=== PATIENT | female | born 1960 | race Hispanic/Latino ===

== ENCOUNTER 2022-12-26 09:26 | Inpatient (IN) | payer BC, OTHER ==
[~2022-12-26] VITALS: Ht 160 cm; Wt 45.4 kg
[2022-12-26] VITALS (13 sets, daily range): BP systolic 94–173; BP diastolic 67–113
[2022-12-26] MEDS ORDERED: METHYLPREDNISOLONE SOD SUCC 125 MG/2ML VIAL IV ONE (09:45)
[2022-12-26] MEDS ORDERED: ALBUTEROL/IPRATROPIUM 3 ML NEB NEB ONE (09:45)
[2022-12-26] MEDS ORDERED: SODIUM CHLORIDE FLUSH 10 ML SYR IV PRN (09:45)
[2022-12-26 09:50] LABS: BASOPHILS # (AUTO) 0.1 (0.0-0.1); BASOPHILS % 0.4 % (0.0-1.0); EOSINOPHILS # (AUTO) 0.1 (0.0-0.4); EOSINOPHILS % 0.6 % (0.0-6.0); HEMOGLOBIN 13.7 g/dL (12.0-16.0); LYMPHOCYTES # (AUTO) 0.9 (1.0-3.2); LYMPHOCYTES % 6.1 % (18.0-39.1); MEAN CORPUSCULAR HEMOGLOBIN 35.6 pg (28-32); MEAN CORPUSCULAR HGB CONC 32.6 g/dL (31-35); MEAN CORPUSCULAR VOLUME 109.1 fL (81-99); MONOCYTES % 7.2 % (4.4-11.3); NEUTROPHILS # (AUTO) 11.9 (2.1-6.9); NEUTROPHILS % 85.3 % (38.7-80.0); PLATELET COUNT 338 x10e3/uL (140-360); RED BLOOD COUNT 3.85 x10e6/uL (3.6-5.1)
[2022-12-26 10:22] LABS: ALBUMIN 3.7 g/dL (3.5-5.0); ALBUMIN/GLOBULIN RATIO 0.9 (0.8-2.0); ANION GAP 12.9 mmol/L (8-16); CALCIUM 9.2 mg/dL (8.4-10.2); CREATININE, SERUM 0.69 mg/dL (0.57-1.11); POTASSIUM 3.9 mmol/L (3.5-5.1)
[2022-12-26] MEDS ORDERED: Morphine 2mg Syringe 2 MG/ML SYR IV ONE (11:15)
[2022-12-26] MEDS ORDERED: SODIUM CHLORIDE 0.9% 1000ML 1,000 ML IV ONE (11:15)
[2022-12-26] MEDS ORDERED: Morphine 2mg Syringe 2 MG/ML SYR IV PRN (11:15)
[2022-12-26] MEDS ORDERED: ONDANSETRON HCL INJ 2MG/ML 2ML 2 MG/ML VIAL IV PRN (11:15)
[2022-12-26] MEDS ORDERED: LEVOFLOXACIN 750MG/D5W 150ML 150 ML IV ONE (11:30)
[2022-12-26] MEDS ORDERED: ZOLPIDEM TARTRATE 5 MG TAB PO PRN (12:00)
[2022-12-26] MEDS ORDERED: ALBUTEROL SULFATE HFA 8GM INHALATION AEROSOL INH PRN (12:00)
[2022-12-26] MEDS ORDERED: AMLODIPINE BESYL5 MG PO (13:11)
[2022-12-26] MEDS ORDERED: IRBESARTAN150 MG PO (13:17)
[2022-12-26] MEDS ORDERED: ALBUTEROL0.63 MG/3 NEB (13:17)
[2022-12-26] MEDS ORDERED: ALENDRONATE SOD70 MG PO (13:17)
[2022-12-26] MEDS ORDERED: HYDROCHLOROTHIA25 MG PO (13:19)
[2022-12-26] MEDS ORDERED: ALBUTEROL SULFAT2 MG PO (13:21)
[2022-12-26] MEDS ORDERED: HYDROCODON-ACE1 EAC9 PO (14:11)
[2022-12-26] MEDS: SODIUM CHLORIDE 0.9% 1000ML 1,000 ML IV SCH (14:44)
[2022-12-26] MEDS: SALMETEROL/FLUTICASONE 250/50 INH SCH (19:20)
[2022-12-26] MEDS ORDERED: HYDROMORPHONE 1MG/1ML INJ IV PRN (19:45)
[2022-12-26] MEDS: NICOTINE 21 MG/EA PATCH TOP SCH (21:12)
[2022-12-26] MEDS: HYDROMORPHONE 1MG/1ML INJ IV PRN (23:14)
[2022-12-27] VITALS (20 sets, daily range): BP systolic 113–158; BP diastolic 71–119
[2022-12-27] MEDS: HYDROMORPHONE 1MG/1ML INJ IV PRN ×5 (03:16→20:37)
[2022-12-27] MEDS: SODIUM CHLORIDE 0.9% 1000ML 1,000 ML IV SCH (06:07)
[2022-12-27 06:55] LABS: BASOPHILS % 0.2 % (0.0-1.0); EOSINOPHILS # (AUTO) 0.1 (0.0-0.4); EOSINOPHILS % 0.7 % (0.0-6.0); HEMATOCRIT 37.4 % (34.2-44.1); HEMOGLOBIN 11.9 g/dL (12.0-16.0); LYMPHOCYTES # (AUTO) 1.2 (1.0-3.2); LYMPHOCYTES % 7.7 % (18.0-39.1); MEAN CORPUSCULAR HEMOGLOBIN 35.3 pg (28-32); MEAN CORPUSCULAR HGB CONC 31.8 g/dL (31-35); MONOCYTES # (AUTO) 1.3 (0.2-0.8); MONOCYTES % 8.2 % (4.4-11.3); NEUTROPHILS # (AUTO) 13.3 (2.1-6.9); NEUTROPHILS % 82.8 % (38.7-80.0); PLATELET COUNT 310 x10e3/uL (140-360); RED BLOOD COUNT 3.37 x10e6/uL (3.6-5.1); RED CELL DISTRIBUTION WIDTH 15.1 % (11.7-14.4)
[2022-12-27] MEDS: SALMETEROL/FLUTICASONE 250/50 INH SCH ×2 (07:11→19:00)
[2022-12-27 07:18] LABS: ALBUMIN 2.8 g/dL (3.5-5.0); ALBUMIN/GLOBULIN RATIO 0.9 (0.8-2.0); ANION GAP 10.2 mmol/L (8-16); CALCIUM 8.7 mg/dL (8.4-10.2); CREATININE, SERUM 0.64 mg/dL (0.57-1.11); POTASSIUM 4.2 mmol/L (3.5-5.1)
[2022-12-27] MEDS: AMLODIPINE BESYLATE 5 MG TAB PO SCH (07:29)
[2022-12-27] MEDS: METOPROLOL TARTRATE 25 MG TAB PO SCH ×2 (09:38→17:51)
[2022-12-27] MEDS: Doxycycline IV 100 MG in SODIUM CHLORIDE 0.9% 100 ML IV SCH ×2 (09:38→20:37)
[2022-12-27] MEDS ORDERED: IOPAMIDOL 370 MG/ML 100 ML INFUS..BTL INJ ONE (15:18)
[2022-12-27] MEDS ORDERED: SODIUM CHLORIDE 0.9% 250ML 250 ML ONE (21:22)
[2022-12-27 22:09] LABS: % IRON SATURATION 9 % (15-50); IRON 22 ug/dL (50-170); TOTAL IRON BINDING CAPACITY 237 ug/dL (261-478); TRANSFERRIN 169 mg/dL (180-382)
[2022-12-27] MEDS ORDERED: KETOROLAC TROMETHAMINE 30 MG/ML VIAL IV STA (22:37)
[2022-12-28] VITALS (7 sets, daily range): BP systolic 125–155; BP diastolic 77–129
[2022-12-28] MEDS: HYDROMORPHONE 1MG/1ML INJ IV PRN ×5 (00:55→22:50)
[2022-12-28] MEDS: SALMETEROL/FLUTICASONE 250/50 INH SCH ×2 (06:47→19:10)
[2022-12-28 08:42] LABS: BASOPHILS # (AUTO) 0.1 (0.0-0.1); BASOPHILS % 0.5 % (0.0-1.0); EOSINOPHILS # (AUTO) 0.3 (0.0-0.4); EOSINOPHILS % 2.5 % (0.0-6.0); HEMATOCRIT 35.8 % (34.2-44.1); LYMPHOCYTES # (AUTO) 1.3 (1.0-3.2); LYMPHOCYTES % 12.3 % (18.0-39.1); MEAN CORPUSCULAR HEMOGLOBIN 35.8 pg (28-32); MEAN CORPUSCULAR HGB CONC 33.5 g/dL (31-35); MONOCYTES % 9.6 % (4.4-11.3); NEUTROPHILS # (AUTO) 7.7 (2.1-6.9); NEUTROPHILS % 74.8 % (38.7-80.0); PLATELET COUNT 208 x10e3/uL (140-360); RED BLOOD COUNT 3.35 x10e6/uL (3.6-5.1); RED CELL DISTRIBUTION WIDTH 14.5 % (11.7-14.4)
[2022-12-28 08:49] LABS: MEAN CORPUSCULAR VOLUME 106.9 fL (81-99)
[2022-12-28] MEDS: DOCUSATE SODIUM 100 MG CAP PO SCH ×2 (08:53→17:02)
[2022-12-28] MEDS: METOPROLOL TARTRATE 25 MG TAB PO SCH ×2 (08:53→17:02)
[2022-12-28] MEDS: NICOTINE 21 MG/EA PATCH TOP SCH ×2 (08:53→09:00)
[2022-12-28] MEDS: AMLODIPINE BESYLATE 5 MG TAB PO SCH (08:53)
[2022-12-28] MEDS: Doxycycline IV 100 MG in SODIUM CHLORIDE 0.9% 100 ML IV SCH ×2 (08:54→22:35)
[2022-12-28] MEDS: IRON SUCROSE 100 MG in SODIUM CHLORIDE 0.9% 100 ML IV SCH (09:07)
[2022-12-28] MEDS: LIDOCAINE 4% PATCH TP SCH (09:55)
[2022-12-28] MEDS: HYDROCODONE/APAP 10MG-325MG TAB PO PRN (12:57)
[2022-12-29] VITALS: BP 139/88
[2022-12-29] MEDS: HYDROMORPHONE 1MG/1ML INJ IV PRN ×3 (04:54→21:31)
[2022-12-29 07:15] LABS: FREE T4 (FREE THYROXINE) 0.7 ng/dL (0.8-1.8); FREE THYROXINE INDEX 1.32 (1.4-3.8); THYROID STIMULATING HORMONE 0.793 uIU/mL (0.350-4.940)
[2022-12-29] MEDS: SALMETEROL/FLUTICASONE 250/50 INH SCH ×2 (07:17→19:00)
[2022-12-29 07:30] VITALS: BP 182/98
[2022-12-29] MEDS ORDERED: Doxycycline IV 100 MG Vial IV ONE (08:53)
[2022-12-29] MEDS: NICOTINE 21 MG/EA PATCH TOP SCH (08:54)
[2022-12-29] MEDS: AMLODIPINE BESYLATE 5 MG TAB PO SCH (08:54)
[2022-12-29] MEDS: DOCUSATE SODIUM 100 MG CAP PO SCH ×2 (08:54→17:17)
[2022-12-29] MEDS: LIDOCAINE 4% PATCH TP SCH (08:54)
[2022-12-29] MEDS: Doxycycline IV 100 MG in SODIUM CHLORIDE 0.9% 100 ML IV SCH ×2 (08:55→21:31)
[2022-12-29] MEDS: METOPROLOL TARTRATE 25 MG TAB PO SCH ×2 (08:55→17:17)
[2022-12-29] MEDS: IRON SUCROSE 100 MG in SODIUM CHLORIDE 0.9% 100 ML IV SCH (10:10)
[2022-12-29 10:54] VITALS: BP 182/98
[2022-12-29] MEDS ORDERED: ONDANSETRON HCL 4 MG ORAL DISINTEGRATING TAB PO PRN (13:45)
[2022-12-29] MEDS: HYDROCODONE/APAP 10MG-325MG TAB PO PRN (14:48)
[2022-12-29 16:00] VITALS: BP 118/80
[2022-12-29 20:00] VITALS: BP 139/102
[2022-12-29 21:00] VITALS: BP 139/102
[2022-12-30] VITALS (9 sets, daily range): BP systolic 117–162; BP diastolic 86–106
[2022-12-30] MEDS: HYDROMORPHONE 1MG/1ML INJ IV PRN ×4 (04:07→18:33)
[2022-12-30] MEDS: SALMETEROL/FLUTICASONE 250/50 INH SCH ×2 (06:37→19:35)
[2022-12-30] MEDS: LIDOCAINE 4% PATCH TP SCH (08:57)
[2022-12-30] MEDS: NICOTINE 21 MG/EA PATCH TOP SCH (08:57)
[2022-12-30] MEDS: METOPROLOL TARTRATE 25 MG TAB PO SCH ×2 (08:58→17:18)
[2022-12-30] MEDS: Doxycycline IV 100 MG in SODIUM CHLORIDE 0.9% 100 ML IV SCH ×2 (08:59→21:50)
[2022-12-30] MEDS: AMLODIPINE BESYLATE 5 MG TAB PO SCH (08:59)
[2022-12-30] MEDS: DOCUSATE SODIUM 100 MG CAP PO SCH ×2 (09:00→17:19)
[2022-12-30] MEDS: IRON SUCROSE 100 MG in SODIUM CHLORIDE 0.9% 100 ML IV SCH (09:19)
[2022-12-30] MEDS ORDERED: METOPROLOL TARTRATE 50 MG TAB PO ONE (18:00)
[2022-12-30] MEDS: HYDROCODONE/APAP 10MG-325MG TAB PO PRN (22:01)
[2022-12-31] VITALS: BP 106/78
[2022-12-31] MEDS: HYDROMORPHONE 1MG/1ML INJ IV PRN ×3 (00:17→12:31)
[2022-12-31 04:00] VITALS: BP 124/92
[2022-12-31] MEDS: SALMETEROL/FLUTICASONE 250/50 INH SCH (06:32)
[2022-12-31 08:14] LABS: ENDOMYSIAL ANTIBODIES, IGA Negative (Negative)
[2022-12-31 08:32] VITALS: BP 157/99
[2022-12-31] MEDS: IRON SUCROSE 100 MG in SODIUM CHLORIDE 0.9% 100 ML IV SCH (08:48)
[2022-12-31] MEDS: DOCUSATE SODIUM 100 MG CAP PO SCH (08:50)
[2022-12-31] MEDS: NICOTINE 21 MG/EA PATCH TOP SCH (08:50)
[2022-12-31] MEDS: AMLODIPINE BESYLATE 5 MG TAB PO SCH (08:50)
[2022-12-31] MEDS: Doxycycline IV 100 MG in SODIUM CHLORIDE 0.9% 100 ML IV SCH (08:50)
[2022-12-31] MEDS: LIDOCAINE 4% PATCH TP SCH (08:51)
[2022-12-31] MEDS ORDERED: METOPROLOL TARTRATE 50 MG TAB PO SCH (09:00)
[2022-12-31 12:15] VITALS: BP 122/82
[2022-12-31] MEDS ORDERED: FERROUS SULFAT325 M1 PO (14:08)
[2022-12-31] MEDS ORDERED: METOPROLOL TART50 MG PO (14:08)
[2022-12-31] MEDS ORDERED: ADVAIR 250-501 EACH INH (14:08)
[2022-12-31] MEDS ORDERED: NICODERM CQ1 EAC2 TOP (14:08)
[2022-12-31] MEDS ORDERED: DOXYCYCLINE HY100 MG PO (14:10)
[2022-12-31] MEDS ORDERED: BENZONATATE100 MG PO (14:10)
== END 2022-12-31 15:00 | disposition home or self-care (01) | DRG 199 ==
LOC: ER 09:29 → ERHOLD 11:50 → OBSVTOIN 13:30 → ICU 15:47 → MED/SURG3 12-27 15:49
PROVIDERS: ADMIT Internal Medicine; ATTEND Internal Medicine
PROC: 0W9930Z Drainage of Right Pleural Cavity with Drainage Device, Percutaneous Approach (ICD-10-PCS; principal; 2022-12-26)
PROC: 02HV33Z Insertion of Infusion Device into Superior Vena Cava, Percutaneous Approach (ICD-10-PCS; 2022-12-29)
DX: J93.9 Pneumothorax, unspecified (principal); E43 Unspecified severe protein-calorie malnutrition; J96.01 Acute respiratory failure with hypoxia; Z68.1 Body mass index [BMI] 19.9 or less, adult; J43.9 Emphysema, unspecified; F17.210 Nicotine dependence, cigarettes, uncomplicated; I10 Essential (primary) hypertension; D50.9 Iron deficiency anemia, unspecified; Z79.51 Long term (current) use of inhaled steroids
CPT/HCPCS: 36415; 36569; 71045; 71046; 71260; 74177; 80053; 82270; 82607; 82728; 82746; 82784; 83010; 83516; 83540; 83605; 83880; 84436; 84439; 84443; 84466; 84479; 84481; 84484; 85025; 85045; 86256; 87040; 87400; 93005; 94640; 94664; 94760; 94799; 99252; 99285; J0696; J1170; J1756; J1885; J2270; J2405; J2930; J7030; J7050; Q9967

== ENCOUNTER → 2023-02-06 | Day surgery (SDC) | payer BC, OTHER ==
[~2023-02-06] MED LIST: ADVAIR 250-501 EACH INH; ALBUTEROL SULFAT2 MG PO; ALBUTEROL0.63 MG/3 NEB; ALENDRONATE SOD70 MG PO; AMLODIPINE BESYL5 MG PO; BENZONATATE100 MG PO; DOXYCYCLINE HY100 MG PO; FENTANYL CITRATE/PF 100MCG/2 ML INJ ONE; FERROUS SULFAT325 M1 PO; GLYCOPYRROLATE INJ 0.2 MG/ML VIAL ONE; HYDROCHLOROTHIA25 MG PO; HYDROCODON-ACE1 EAC9 PO; HYOSCYAMINE SULFATE 0.5 MG/ML INJ ONE; IRBESARTAN-HCT1 EAC1 PO; IRBESARTAN150 MG PO; LABETALOL HCL 5 MG/ML 20ML VIAL ONE; LIDOCAINE HCL 2% LOCAL INJ 5 ML SDV VIAL INJ ONE; METOPROLOL TART50 MG PO; NICODERM CQ1 EAC2 TOP; POVIDONE IODINE 0.05% 0.05 % ML PO ONE; PROPOFOL IV EMULSION 50 ML IV ONE
[2023-02-06 16:33] VITALS: BP 136/89
== END | disposition home or self-care (01) ==
LOC: OR 12:23
PROVIDERS: ATTEND Internal Medicine Gastroenterology
DX: E46 Unspecified protein-calorie malnutrition (principal); D12.0 Benign neoplasm of cecum; K29.70 Gastritis, unspecified, without bleeding; K20.90 Esophagitis, unspecified without bleeding; K57.30 Diverticulosis of large intestine without perforation or abscess without bleeding; K64.8 Other hemorrhoids; Z71.3 Dietary counseling and surveillance; D64.9 Anemia, unspecified; R63.4 Abnormal weight loss; J44.9 Chronic obstructive pulmonary disease, unspecified; I10 Essential (primary) hypertension; E78.00 Pure hypercholesterolemia, unspecified; Z79.899 Other long term (current) drug therapy; Z86.16 Personal history of COVID-19
CPT/HCPCS: 43239; 45385; 82607; 82746; C9113; J1980; J2001; J2704; J3010; J3490; 45378